=== PATIENT | female | born 1980 | race American Indian/Alaskan Native ===

== ENCOUNTER 2019-08-26 22:32 | Inpatient (IN) | payer MEDICAID ==
[~2019-08-26] VITALS: Ht 167.6 cm; Wt 98.0 kg
[~2019-08-26 22:32] MED LIST: BUSP10TA11 PO; ESCI20TA38 PO; GABA-532 PO; LORA10TA7 PO; MONT10TA24 PO; OXYB15TA18 PO; TRAZ-251 PO
[2019-08-26] MEDS ORDERED: LORazepam 2 mg/ml vial IV ONE (22:55)
[2019-08-26] MEDS ORDERED: normal saline 1000ML IV soln IVB ONE (22:55)
[2019-08-26] MEDS ORDERED: HYDROmorphone 1 mg/ml syringe IV ONE (22:55)
[2019-08-26] MEDS ORDERED: normal saline 1000ML IV soln IV ONE (23:05)
[2019-08-26] MEDS ORDERED: piperacillin/tazo 3.375gm/50ml 50 ML IV ONE (23:05)
[2019-08-26 23:18] LABS: BASOPHILS % (AUTO) 0.3 % (0-1); EOSINOPHILS # (AUTO) 0.1 X10'3 (0-0.9); EOSINOPHILS % (AUTO) 0.7 % (0-6); HEMATOCRIT 36.7 % (35.0-45.0); HEMOGLOBIN 12.2 g/dl (12.0-16.0); LYMPHOCYTES # (AUTO) 2.9 X10'3 (1.1-4.8); LYMPHOCYTES % (AUTO) 20.6 % (21-51); MEAN CORPUSCULAR HEMOGLOBIN 29.4 PG (27.0-31.0); MEAN CORPUSCULAR HGB CONC 33.2 g/dL (33.0-36.5); MEAN CORPUSCULAR VOLUME 88.7 FL (78-98); MEAN PLATELET VOLUME 8.1 FL (7.4-10.4); MONOCYTES # (AUTO) 0.8 X10'3 (0-0.9); MONOCYTES % (AUTO) 5.8 % (2-12); NEUTROPHILS # (AUTO) 10.4 X10'3 (1.8-7.7); NEUTROPHILS % (AUTO) 72.6 % (42-75); PLATELET COUNT 249 X10'3 (140-440); RED BLOOD COUNT 4.14 X10'6 (4.20-5.60); RED CELL DISTRIBUTION WIDTH 14.5 % (11.5-14.5); WHITE BLOOD COUNT 14.3 X10'3 (4.5-11.0)
[2019-08-26 23:30] LABS: ALANINE AMINOTRANSFERASE 21 U/L (12-78); ALBUMIN 3.3 G/DL (3.4-5.0); ALBUMIN/GLOBULIN RATIO 0.8 (1.1-1.5); ALKALINE PHOSPHATASE 102 IU/L (46-116); ANION GAP 6 (8-16); ASPARTATE AMINO TRANSFERASE 20 U/L (10-37); BILIRUBIN,TOTAL 0.3 MG/DL (0.1-1.0); BLOOD UREA NITROGEN 18 MG/DL (7-18); BUN/CREATININE RATIO 17.6 (6.6-38.0); CALCIUM 8.3 MG/DL (8.5-10.1); CHLORIDE 107 MMOL/L (99-107); CREATININE 1.02 MG/DL (0.40-0.90); GLUCOSE 114 MG/DL (70-104); POTASSIUM 3.8 MMOL/L (3.5-5.1); SODIUM 140 MMOL/L (135-145); TOTAL PROTEIN 7.5 G/DL (6.4-8.2); eGFR 60 ML/MIN
[2019-08-26] MEDS ORDERED: NO HOME MEDS (23:41)
[2019-08-26] MEDS ORDERED: morphine 2 MG/ML inj. syringe IV PRN (23:45)
[2019-08-26] MEDS ORDERED: acetaminophen 325mg tablet PO PRN (23:45)
[2019-08-26] MEDS ORDERED: magnesium hydroxide 30ml (MOM) UD suspension PO PRN (23:45)
[2019-08-26] MEDS ORDERED: ondansetron/PF 4mg/2ml inj IV PRN (23:45)
[2019-08-26] MEDS ORDERED: HYDROcodone/acetaminophen 10/325mg tab PO PRN (23:45)
[2019-08-26] MEDS ORDERED: HYDROcodone/acetaminophen 5mg/325mg tablet PO PRN (23:45)
[2019-08-26] MEDS ORDERED: mag hydrox/Alum hydrox/simeth 30ml oral suspension PO PRN (23:45)
[2019-08-26 23:47] LABS: CLARITY,URINE CLEAR (Clear); COLOR,URINE YELLOW (Yellow); GLUCOSE, URINE NEGATIVE (Neg); KETONES,URINE NEGATIVE (Neg); LEUKOCYTE ESTERASE ,URINE NEGATIVE (Neg); NITRITES, URINE NEGATIVE (Neg); OCCULT BLOOD,URINE NEGATIVE (Neg); PH,URINE 5.5 (4.8-8.0); PROTEIN,URINE TRACE mg/dl (Neg); UROBILINOGEN,URINE 0.2 E.U/dL (0.2-1.0)
[2019-08-26 23:48] LABS: UA COLLECTION TYPE FOLEY CATH; URINE HCG NEGATIVE (NEG)
[2019-08-26 23:55] LABS: BACTERIA,URINE FEW /HPF (Neg); RBC,URINE 0-2 /HPF (0-2); SQUAMOUS EPITHELIAL CELL,UR FEW /LPF (FEW); WBC CLUMPS,URINE FEW /HPF (NEGATIVE)
[2019-08-27] VITALS (19 sets, daily range): BP systolic 114–165; BP diastolic 55–87
[2019-08-27] MEDS ORDERED: ketamine 50 mg/ml 10ml vial IV ONE ×3 (00:05→00:50)
[2019-08-27] MEDS ORDERED: ketamine 10mg/ml 20ml inj IV ONE (00:05)
[2019-08-27] MEDS ORDERED: BUPIVAcaine 0.5% inj/PF 30 ml vial IJ ONE (00:20)
--- NOTE | 2019-08-27 01:08 | NUR ---
MOD SEDATION COMPLETE - PT TOLERATED PROCEDURE WELL. WE WERE ABLE TO IRRIGATE THE LEG WOUND WITH APPROX 2L NS AND PLACED A WET TO DRY DRESSING.
[2019-08-27] MEDS ORDERED: HYDROmorphone 1 mg/ml syringe IV ONE (01:15)
[2019-08-27] MEDS: dextrose 5%-1/2 normal saline 1,000 ML IV SCH ×3 (01:32→22:32)
[2019-08-27] MEDS ORDERED: oxyCODONE/APAP 10/325mg tablet PO ONE (04:00)
--- NOTE | 2019-08-27 06:06 | NUR ---
Report given Shannon DIAMOND.
--- NOTE | 2019-08-27 06:09 | NUR ---
RECEIVED REPORT FROM LOBO ROBB
[2019-08-27 06:35] LABS: BASOPHILS % (AUTO) 0.2 % (0-1); EOSINOPHILS % (AUTO) 0.2 % (0-6); HEMATOCRIT 31.7 % (35.0-45.0); HEMOGLOBIN 10.7 g/dl (12.0-16.0); LYMPHOCYTES # (AUTO) 1.7 X10'3 (1.1-4.8); LYMPHOCYTES % (AUTO) 16.9 % (21-51); MEAN CORPUSCULAR HEMOGLOBIN 30.2 PG (27.0-31.0); MEAN CORPUSCULAR HGB CONC 33.7 g/dL (33.0-36.5); MEAN CORPUSCULAR VOLUME 89.7 FL (78-98); MEAN PLATELET VOLUME 8.5 FL (7.4-10.4); MONOCYTES # (AUTO) 0.9 X10'3 (0-0.9); MONOCYTES % (AUTO) 8.7 % (2-12); NEUTROPHILS # (AUTO) 7.6 X10'3 (1.8-7.7); PLATELET COUNT 190 X10'3 (140-440); RED BLOOD COUNT 3.53 X10'6 (4.20-5.60); RED CELL DISTRIBUTION WIDTH 14.7 % (11.5-14.5); WHITE BLOOD COUNT 10.3 X10'3 (4.5-11.0)
[2019-08-27 07:00] LABS: ALBUMIN 2.7 G/DL (3.4-5.0); ANION GAP 9 (8-16); BLOOD UREA NITROGEN 14 MG/DL (7-18); BUN/CREATININE RATIO 14.7 (6.6-38.0); CALCIUM 7.6 MG/DL (8.5-10.1); CHLORIDE 109 MMOL/L (99-107); CREATININE 0.95 MG/DL (0.40-0.90); GLUCOSE 131 MG/DL (70-104); POTASSIUM 3.6 MMOL/L (3.5-5.1); SODIUM 139 MMOL/L (135-145); TOTAL CARBON DIOXIDE 21.1 MMOL/L (24-32); eGFR 65 ML/MIN
[2019-08-27] MEDS: piperacillin/tazo 4.5gm/100ml 100 ML IV SCH ×3 (07:04→22:32)
[2019-08-27] MEDS: morphine 2 MG/ML inj. syringe IV PRN ×3 (09:21→22:35)
[2019-08-27] MEDS ORDERED: FLU VACC QS2019-20 36MOS UP/PF 60 MCG/0.5 ML SYRINGE IMVAC ONE (10:00)
--- NOTE | 2019-08-27 10:46 | NUR ---
gave report to maeve walker in recovery
--- NOTE | 2019-08-27 11:05 | NUR ---
pt wheeled down to or at this time
[2019-08-27] MEDS ORDERED: ringers solution, lacted 1,000 ML IV SCH (11:27)
[2019-08-27] MEDS ORDERED: meperidine/PF 25mg/ml syringe IV PRN ×3 (11:30)
[2019-08-27] MEDS ORDERED: proCHLORperazine 10 MG/2 ml inj IV PRN (11:30)
[2019-08-27] MEDS ORDERED: ondansetron/PF 4mg/2ml inj IV PRN (11:30)
[2019-08-27] MEDS ORDERED: morphine 4 MG/ML inj SYRINge IV PRN ×2 (11:30)
[2019-08-27] MEDS ORDERED: sevoflurane 250ml liquid IH ONE (11:38)
[2019-08-27] MEDS ORDERED: rocuronium 10mg/ml inj IV ONE (11:38)
[2019-08-27] MEDS ORDERED: midazolam 2 mg/2 ml injection ONE (11:42)
[2019-08-27] MEDS ORDERED: fentaNYL /PF 50mcg/ml 5ml ampule ONE (11:42)
[2019-08-27] MEDS ORDERED: ketamine 50mg/5ml syringe ONE (11:51)
[2019-08-27] MEDS ORDERED: phenylephrine inj 20 MG in NS 250ml IV soln IV SCH (11:55)
[2019-08-27] MEDS ORDERED: propofol inj 20 ML IV ONE (12:12)
[2019-08-27] MEDS ORDERED: ondansetron/PF 4mg/2ml inj ONE (12:12)
[2019-08-27] MEDS ORDERED: glycopyrrolate 0.2mg/ml inj ONE (12:12)
[2019-08-27] MEDS ORDERED: LIDOcaine 2% (20mg/ml) 5ml vial ONE (12:12)
[2019-08-27] MEDS ORDERED: neostigmine methylsulfate 1 MG/ML 10ml vial ONE (12:12)
[2019-08-27] MEDS ORDERED: dexamethasone sod phosphate 4mg/ml inj. ONE (12:12)
--- NOTE | 2019-08-27 12:40 | NUR ---
Received from OR via ORTHO BED WITH AZLEFTY , accompanied by Anesthesiologist GERARDO and report given by Anesthesiolgist. PATIENT WITH 22G PIV IN LEFT UE RUNNING LR AT 100. LEFT HAND WITH CRISTOPHER WRAP DRESSING THAT IS CDI. LEFT LE WITH CRISTOPHER BANDAGE PRESENT TO THIGH AREA. DRESSING IS CDI CURRENTLY. + CAP REFILL DISTAL TO DRESSING. 10L MASK ON WITH 100% SATURATIONS. Addendum: 08/27/19 at 1256 by Mohamud Jennings RN, RN Amended: Links added.
--- NOTE | 2019-08-27 13:30 | NUR ---
ALL CRITERIA FOR TRANSFER TO THE FLOOR HAS BEEN ACHIEVED. VSS. BED LOW, CALL LIGHT AND VS. SET IN PLACE. RN PRESENT TO ACCEPT CARE. PATIENT RESTING COMFORTABLY IN BED. BELONGINGS SENT WITH PATIENT. DRESSINGS CDI. LOOB GARZON AWARE PATIENT HAS ARRIVED. Addendum: 08/27/19 at 1359 by Mohamud Jennings RN, RN Amended: Links added.
--- NOTE | 2019-08-27 13:32 | NUR ---
received report from maeve schmidt in recovery
--- NOTE | 2019-08-27 18:21 | NUR ---
gave report maeve cronin
--- NOTE | 2019-08-27 19:00 | NUR ---
Patient in room ORTHO 4016. I have received report from Shannon Mcdonough RN and had the opportunity to ask questions and assume patient care.
[2019-08-27] MEDS: lactobacillus rhamnosus 10,000 MMU CELLS/CAPSULE PO SCH (20:00)
[2019-08-28] MEDS: morphine 2 MG/ML inj. syringe IV PRN ×2 (05:34→12:14)
[2019-08-28] MEDS: dextrose 5%-1/2 normal saline 1,000 ML IV SCH ×3 (05:55→22:13)
[2019-08-28 06:00] VITALS: BP 111/63
[2019-08-28 06:03] LABS: BASOPHILS # (AUTO) 0.1 X10'3 (0-0.2); BASOPHILS % (AUTO) 0.4 % (0-1); EOSINOPHILS % (AUTO) 0 % (0-6); HEMATOCRIT 31.5 % (35.0-45.0); HEMOGLOBIN 10.7 g/dl (12.0-16.0); LYMPHOCYTES % (AUTO) 8.2 % (21-51); MEAN CORPUSCULAR HEMOGLOBIN 30.2 PG (27.0-31.0); MEAN CORPUSCULAR HGB CONC 33.9 g/dL (33.0-36.5); MEAN CORPUSCULAR VOLUME 89.2 FL (78-98); MEAN PLATELET VOLUME 8.8 FL (7.4-10.4); MONOCYTES # (AUTO) 0.9 X10'3 (0-0.9); MONOCYTES % (AUTO) 6.9 % (2-12); NEUTROPHILS # (AUTO) 10.7 X10'3 (1.8-7.7); NEUTROPHILS % (AUTO) 84.5 % (42-75); PLATELET COUNT 232 X10'3 (140-440); RED BLOOD COUNT 3.53 X10'6 (4.20-5.60); RED CELL DISTRIBUTION WIDTH 14.6 % (11.5-14.5); WHITE BLOOD COUNT 12.7 X10'3 (4.5-11.0)
--- NOTE | 2019-08-28 06:05 | NUR ---
Patient in room ORTHO 4016. I have received report from MADYSON DIAMOND and had the opportunity to ask questions and assume patient care.
[2019-08-28 06:13] LABS: ALBUMIN 2.5 G/DL (3.4-5.0); ANION GAP 6 (8-16); BLOOD UREA NITROGEN 12 MG/DL (7-18); BUN/CREATININE RATIO 13.8 (6.6-38.0); CALCIUM 8.3 MG/DL (8.5-10.1); CHLORIDE 107 MMOL/L (99-107); CREATININE 0.87 MG/DL (0.40-0.90); GLUCOSE 145 MG/DL (70-104); SODIUM 138 MMOL/L (135-145); TOTAL CARBON DIOXIDE 25.3 MMOL/L (24-32); eGFR 72 ML/MIN
[2019-08-28] MEDS: piperacillin/tazo 4.5gm/100ml 100 ML IV SCH ×3 (07:30→23:21)
[2019-08-28] MEDS: lactobacillus rhamnosus 10,000 MMU CELLS/CAPSULE PO SCH ×2 (07:30→19:22)
[2019-08-28 10:00] VITALS: BP 120/65
[2019-08-28] MEDS: oxyCODONE/APAP 10/325mg tablet PO PRN ×3 (10:42→19:22)
[2019-08-28] MEDS: VANCOmycin 1250MG/NS 250ml Bag 250 ML IV SCH ×2 (11:03→16:53)
[2019-08-28 14:00] VITALS: BP 114/62
--- NOTE | 2019-08-28 14:53 | NUR ---
Non-admin Zoxyn for 1500, AM dose still infusing due to secondary line valve closed.
[2019-08-28 18:00] VITALS: BP 103/51
--- NOTE | 2019-08-28 18:25 | NUR ---
Problems reprioritized. Patient report given, questions answered & plan of care reviewed with ANJALI DIAMNOD.
--- NOTE | 2019-08-28 18:28 | NUR ---
Patient in room ORTHO 4016. I have received report from Jonah DIAMOND and had the opportunity to ask questions and assume patient care.
[2019-08-28 22:00] VITALS: BP 101/46
[2019-08-29] MEDS: VANCOmycin 1250MG/NS 250ml Bag 250 ML IV SCH ×2 (00:56→09:07)
[2019-08-29] MEDS: oxyCODONE/APAP 10/325mg tablet PO PRN ×4 (01:58→14:16)
[2019-08-29 06:00] VITALS: BP 99/63
--- NOTE | 2019-08-29 06:31 | NUR ---
Problems reprioritized. Patient report given, questions answered & plan of care reviewed with Abdirizak DIAMOND.
--- NOTE | 2019-08-29 06:34 | NUR ---
Patient in room ORTHO 4015. I have received report from Sherri DIAMOND and had the opportunity to ask questions and assume patient care.
[2019-08-29] MEDS: lactobacillus rhamnosus 10,000 MMU CELLS/CAPSULE PO SCH (07:15)
[2019-08-29] MEDS: piperacillin/tazo 4.5gm/100ml 100 ML IV SCH (07:18)
[2019-08-29] MEDS ORDERED: VANCOMYCIN LEVEL IV ONE (08:30)
[2019-08-29 09:35] LABS: BASOPHILS % (AUTO) 0.3 % (0-1); EOSINOPHILS # (AUTO) 0.1 X10'3 (0-0.9); EOSINOPHILS % (AUTO) 0.8 % (0-6); HEMATOCRIT 28.7 % (35.0-45.0); HEMOGLOBIN 9.8 g/dl (12.0-16.0); LYMPHOCYTES # (AUTO) 2.9 X10'3 (1.1-4.8); MEAN CORPUSCULAR HEMOGLOBIN 30.4 PG (27.0-31.0); MEAN CORPUSCULAR VOLUME 89.4 FL (78-98); MEAN PLATELET VOLUME 8.4 FL (7.4-10.4); MONOCYTES # (AUTO) 0.5 X10'3 (0-0.9); MONOCYTES % (AUTO) 6.9 % (2-12); NEUTROPHILS # (AUTO) 3.6 X10'3 (1.8-7.7); PLATELET COUNT 194 X10'3 (140-440); RED BLOOD COUNT 3.21 X10'6 (4.20-5.60); RED CELL DISTRIBUTION WIDTH 14.7 % (11.5-14.5)
[2019-08-29 09:42] LABS: ALBUMIN 2.3 G/DL (3.4-5.0); ANION GAP 6 (8-16); BLOOD UREA NITROGEN 11 MG/DL (7-18); BUN/CREATININE RATIO 13.3 (6.6-38.0); CALCIUM 7.9 MG/DL (8.5-10.1); CHLORIDE 107 MMOL/L (99-107); CREATININE 0.83 MG/DL (0.40-0.90); GLUCOSE 110 MG/DL (70-104); POTASSIUM 3.7 MMOL/L (3.5-5.1); SODIUM 140 MMOL/L (135-145); TOTAL CARBON DIOXIDE 27.4 MMOL/L (24-32); VANCOMYCIN,TROUGH 17.8 UG/ML (6.0-14.0); eGFR 76 ML/MIN
[2019-08-29 10:00] VITALS: BP 98/52
[2019-08-29] MEDS ORDERED: IBUP-1984 PO (10:03)
[2019-08-29] MEDS ORDERED: AMOX-580 PO (10:03)
[2019-08-29] MEDS ORDERED: ACET-2119 PO (10:03)
[2019-08-29] MEDS: dextrose 5%-1/2 normal saline 1,000 ML IV SCH (11:41)
--- NOTE | 2019-08-29 15:01 | NUR ---
Safe discharge with father and friend. all personal items with patient.
== END 2019-08-29 15:00 | disposition home or self-care (01) | DRG 384 ==
LOC: ER 22:32 → CANBEDREQ 23:41 → ED HOLD 23:41 → CMPBEDREQ 08-27 02:39 → ORTHO 4S 08-27 02:40
PROVIDERS: ADMIT Internal Medicine; ATTEND Internal Medicine
PROC: 3E0T3BZ Introduction of Anesthetic Agent into Peripheral Nerves and Plexi, Percutaneous Approach (ICD-10-PCS; 2019-08-26)
PROC: 0HQLXZZ Repair Left Lower Leg Skin, External Approach (ICD-10-PCS; 2019-08-27)
PROC: 3E02340 Introduction of Influenza Vaccine into Muscle, Percutaneous Approach (ICD-10-PCS; 2019-08-27)
PROC: 0HDLXZZ Extraction of Left Lower Leg Skin, External Approach (ICD-10-PCS; principal; 2019-08-27 11:38)
DX: S81.852A Open bite, left lower leg, initial encounter (principal); L03.116 Cellulitis of left lower limb; F12.90 Cannabis use, unspecified, uncomplicated; F15.10 Other stimulant abuse, uncomplicated; J45.909 Unspecified asthma, uncomplicated; F17.200 Nicotine dependence, unspecified, uncomplicated; S61.452A Open bite of left hand, initial encounter; F32.9 Major depressive disorder, single episode, unspecified; F41.9 Anxiety disorder, unspecified; W54.0XXA Bitten by dog, initial encounter; Y93.89 Activity, other specified; Y92.89 Other specified places as the place of occurrence of the external cause; Y99.8 Other external cause status; Z59.0 Homelessness; Z83.3 Family history of diabetes mellitus; Z23 Encounter for immunization; Z88.5 Allergy status to narcotic agent
CPT/HCPCS: 36415; 64450; 73130; 73590; 80048; 80053; 80202; 81001; 81025; 82948; 83605; 85025; 85610; 86885; 86900; 86901; 87040; 87081; 87088; 94760; 96365; 96375; 99285; A4618; A6223; A6446; A6449; A7000; G0378; J1100; J1170; J2001; J2060; J2175; J2250; J2270; J2370; J2405; J2543; J2704; J2710; J3010; J3370; J3490; J7050; J7120; Q2037

== ENCOUNTER 2020-01-06 23:34 | Emergency (ER) | payer MEDICAID ==
[~2020-01-06] VITALS: Ht 167.6 cm; Wt 103.2 kg
[2020-01-07 00:15] LABS: BASOPHILS # (AUTO) 0.1 X10'3 (0-0.2); BASOPHILS % (AUTO) 0.5 % (0-1); EOSINOPHILS # (AUTO) 0.1 X10'3 (0-0.9); EOSINOPHILS % (AUTO) 0.9 % (0-6); HEMATOCRIT 40.2 % (35.0-45.0); HEMOGLOBIN 13.7 g/dl (12.0-16.0); LYMPHOCYTES # (AUTO) 3.4 X10'3 (1.1-4.8); LYMPHOCYTES % (AUTO) 32.4 % (21-51); MEAN CORPUSCULAR HEMOGLOBIN 29.6 PG (27.0-31.0); MEAN CORPUSCULAR HGB CONC 34.2 g/dL (33.0-36.5); MEAN CORPUSCULAR VOLUME 86.4 FL (78-98); MEAN PLATELET VOLUME 7.9 FL (7.4-10.4); MONOCYTES # (AUTO) 0.5 X10'3 (0-0.9); MONOCYTES % (AUTO) 5.3 % (2-12); NEUTROPHILS # (AUTO) 6.3 X10'3 (1.8-7.7); NEUTROPHILS % (AUTO) 60.9 % (42-75); PLATELET COUNT 281 X10'3 (140-440); RED BLOOD COUNT 4.65 X10'6 (4.20-5.60); RED CELL DISTRIBUTION WIDTH 14.7 % (11.5-14.5); WHITE BLOOD COUNT 10.4 X10'3 (4.5-11.0)
[2020-01-07 00:20] LABS: CLARITY,URINE CLEAR (Clear); COLOR,URINE YELLOW (Yellow); GLUCOSE, URINE NEGATIVE (Neg); KETONES,URINE NEGATIVE (Neg); LEUKOCYTE ESTERASE ,URINE SMALL (Neg); NITRITES, URINE NEGATIVE (Neg); OCCULT BLOOD,URINE NEGATIVE (Neg); PROTEIN,URINE NEGATIVE (Neg)
[2020-01-07 00:23] LABS: URINE HCG NEGATIVE (NEG)
[2020-01-07 00:27] LABS: ALANINE AMINOTRANSFERASE 13 U/L (12-78); ALBUMIN 3.1 G/DL (3.4-5.0); ALBUMIN/GLOBULIN RATIO 0.6 (1.1-1.5); ALKALINE PHOSPHATASE 99 IU/L (46-116); ANION GAP 5 (8-16); ASPARTATE AMINO TRANSFERASE 11 U/L (10-37); BILIRUBIN,TOTAL 0.1 MG/DL (0.1-1.0); BLOOD UREA NITROGEN 19 MG/DL (7-18); BUN/CREATININE RATIO 19.4 (6.6-38.0); CALCIUM 8.2 MG/DL (8.5-10.1); CHLORIDE 106 MMOL/L (99-107); CREATININE 0.98 MG/DL (0.40-0.90); GLUCOSE 87 MG/DL (70-104); LIPASE 161 U/L (73-393); POTASSIUM 3.8 MMOL/L (3.5-5.1); SODIUM 141 MMOL/L (135-145); TOTAL CARBON DIOXIDE 29.9 MMOL/L (24-32); TOTAL PROTEIN 8.1 G/DL (6.4-8.2); eGFR 63 ML/MIN
[2020-01-07 00:28] LABS: UA COLLECTION TYPE CLN CATCH MIDSTREAM
[2020-01-07] MEDS ORDERED: diphenhydrAMINE 50 mg/ml inj IV ONE (00:30)
[2020-01-07] MEDS ORDERED: ketorolac trometh. 30mg/ml inj. IV ONE (00:30)
[2020-01-07] MEDS ORDERED: metoclopramide 5 mg/ml inj IV ONE (00:30)
[2020-01-07] MEDS ORDERED: normal saline 1000ML IV soln IVB ONE (00:30)
[2020-01-07 00:31] LABS: BACTERIA,URINE NONE SEEN /HPF (Neg); RBC,URINE NONE SEEN /HPF (0-2); SQUAMOUS EPITHELIAL CELL,UR FEW /LPF (FEW); WBC,URINE 30-50 /HPF (0-4)
[2020-01-07] MEDS ORDERED: CEPH500C5 PO (00:37)
[2020-01-07] MEDS ORDERED: CefTRIAXone 2gm/D5W 50ml 50 ML IV ONE (00:40)
[2020-01-07 01:49] VITALS: BP 131/68
== END 2020-01-07 01:45 | disposition home or self-care (01) ==
LOC: ER 23:34
DX: N39.0 Urinary tract infection, site not specified (principal); J45.909 Unspecified asthma, uncomplicated; F41.9 Anxiety disorder, unspecified; F32.9 Major depressive disorder, single episode, unspecified; F15.90 Other stimulant use, unspecified, uncomplicated; F12.90 Cannabis use, unspecified, uncomplicated; Z98.890 Other specified postprocedural states; Z79.2 Long term (current) use of antibiotics; Z88.5 Allergy status to narcotic agent
CPT/HCPCS: 36415; 80053; 81001; 81025; 83690; 84145; 85025; 87088; 96365; 96375; 99284; J0696; J1200; J1885; J2765; J7030

== ENCOUNTER 2020-07-18 15:23 | Emergency (ER) | payer MEDICAID ==
[~2020-07-18] VITALS: Ht 167.6 cm; Wt 108.0 kg
[~2020-07-18 15:23] MED LIST changes: -BUSP10TA11 PO; +CEPH500C5 PO; -ESCI20TA38 PO; -GABA-532 PO; -LORA10TA7 PO; -MONT10TA24 PO; -OXYB15TA18 PO; -TRAZ-251 PO
[2020-07-18] MEDS ORDERED: diphenhydrAMINE 25mg capsule PO ONE (16:30)
[2020-07-18] MEDS ORDERED: predniSONE 20 mg tablet PO ONE (16:30)
[2020-07-18] MEDS ORDERED: METH4TAB3 PO (16:31)
[2020-07-18] MEDS ORDERED: EPIN0.3P3 IM (16:31)
[2020-07-18 17:00] VITALS: BP 142/93
== END 2020-07-18 17:01 | disposition home or self-care (01) ==
LOC: ER 15:23
DX: T63.441A Toxic effect of venom of bees, accidental (unintentional), initial encounter (principal); J45.909 Unspecified asthma, uncomplicated; F41.9 Anxiety disorder, unspecified; F32.9 Major depressive disorder, single episode, unspecified; F12.90 Cannabis use, unspecified, uncomplicated; F15.90 Other stimulant use, unspecified, uncomplicated; Z98.890 Other specified postprocedural states; Z88.5 Allergy status to narcotic agent; Z79.2 Long term (current) use of antibiotics; Z79.899 Other long term (current) drug therapy; Y92.89 Other specified places as the place of occurrence of the external cause
CPT/HCPCS: 99283; J7512; Q0163

== ENCOUNTER 2020-11-19 10:44 | Emergency (ER) | payer MEDICAID ==
[~2020-11-19] VITALS: Ht 167.6 cm; Wt 116.2 kg
[~2020-11-19 10:44] MED LIST changes: +EPIN0.3P3 IM; +METH4TAB3 PO
[2020-11-19] MEDS ORDERED: LIDOcaine 1% W/epiNEPHrine 1:200,000 10ml vial IJ ONE (11:00)
[2020-11-19] MEDS ORDERED: CefTRIAXone/D5W-Rocephin 1gm 50 ML IV ONE (11:05)
[2020-11-19] MEDS ORDERED: CEPH250T PO (11:15)
[2020-11-19] MEDS ORDERED: SULF1TAB49 PO (11:15)
--- NOTE | 2020-11-19 11:18 | NUR ---
discussed pt's anxiety w/ waldo avitia; new order for ativan0.5mg iv received
[2020-11-19] MEDS ORDERED: LORazepam 2 mg/ml vial IV ONE (11:20)
--- NOTE | 2020-11-19 11:35 | NUR ---
ASSISTED MIK SCHULER W/ I&d OF ABSCESS BETWEEN UPPER LIP AND NARES.
[2020-11-19] MEDS ORDERED: ondansetron/PF 4mg/2ml inj IV ONE (12:00)
[2020-11-19] MEDS ORDERED: morphine 4 MG/ML inj SYRINge IV ONE (12:00)
--- NOTE | 2020-11-19 12:15 | NUR ---
DIFFICULT I&d D/T LOCATION. DRAINED ABSCESS. NO DRESSING APPLIED, RATHER PT DABBING W/ GAUZE NEEDED.
[2020-11-19 12:39] VITALS: BP 141/86
== END 2020-11-19 12:35 | disposition home or self-care (01) ==
LOC: ER 10:45
DX: K13.0 Diseases of lips (principal); L02.01 Cutaneous abscess of face
CPT/HCPCS: 10060; 96365; 96375; 99284; J0696; J2060; J2270; J2405; 96368

== ENCOUNTER 2023-06-08 21:12 | Emergency (ER) | payer MEDICAID ==
[~2023-06-08] VITALS: Ht 168.9 cm; Wt 110.8 kg
[~2023-06-08 21:12] MED LIST changes: -CEPH500C5 PO
[2023-06-08 22:15] VITALS: BP 149/100; PULSE 102; RESP 18; TEMP 97.8; O2SAT 100
[2023-06-09] MEDS ORDERED: AMOX-117 PO (22:49)
== END 2023-06-09 02:45 | disposition left against medical advice (07) ==
LOC: ER 21:12
DX: R22.32 Localized swelling, mass and lump, left upper limb (principal); Z53.21 Procedure and treatment not carried out due to patient leaving prior to being seen by health care provider
CPT/HCPCS: 73130; 99281

== ENCOUNTER 2023-06-09 14:53 | Emergency (ER) | payer MEDICAID ==
[~2023-06-09] VITALS: Ht 168.9 cm; Wt 106.8 kg
[2023-06-09 15:02] VITALS: BP 148/93; PULSE 115; RESP 16; TEMP 97.3; O2SAT 95
[2023-06-09] MEDS ORDERED: naproxen 500mg tablet PO ONE (22:45)
[2023-06-09] MEDS ORDERED: acetaminophen 325mg tablet PO ONE (22:45)
[2023-06-09] MEDS ORDERED: amox tr/potassium clavulanate 875/125mg TAB PO ONE (22:45)
[2023-06-09] MEDS ORDERED: AMOX-117 PO (22:49)
--- NOTE | 2023-06-09 22:55 | NUR ---
PO MED GIVEN BITE CLEANED DRESSING APPLIED
--- NOTE | 2023-06-10 14:28 | NUR ---
Presciption was escripted to [facility] on [address] but patient states that prescription was not there. Called in prescription for augmentin and left a voicemail message. Call and Notified patient regarding this.
== END 2023-06-09 23:32 | disposition home or self-care (01) ==
LOC: ER 14:53
DX: S61.253A Open bite of left middle finger without damage to nail, initial encounter (principal); L03.114 Cellulitis of left upper limb; J45.909 Unspecified asthma, uncomplicated; E11.9 Type 2 diabetes mellitus without complications; F12.90 Cannabis use, unspecified, uncomplicated; F15.90 Other stimulant use, unspecified, uncomplicated; Z88.8 Allergy status to other drugs, medicaments and biological substances; Z79.2 Long term (current) use of antibiotics; Z79.899 Other long term (current) drug therapy; W54.0XXA Bitten by dog, initial encounter; Y93.89 Activity, other specified; Y92.89 Other specified places as the place of occurrence of the external cause; Y99.8 Other external cause status
CPT/HCPCS: 99284